=== PATIENT | male | born 1950 | race Caucasian/White ===

== ENCOUNTER 2025-06-12 14:24 | Emergency (ER) | payer OTHER ==
[~2025-06-12] VITALS: Ht 185.4 cm; Wt 87.1 kg
[2025-06-12] MEDS ORDERED: CARVEDILOL6.25 MG PO (14:49)
[2025-06-12] MEDS ORDERED: ELIQUIS5 M1 PO (14:49)
[2025-06-12] MEDS ORDERED: Acetaminophen/Oxycodone 5 MG/325 MG TABLET PO ONE (15:30)
[2025-06-12] MEDS ORDERED: PERCOCET 5-3251 EACH PO (15:39)
== END 2025-06-12 19:17 | disposition home or self-care (01) ==
LOC: ED 14:24
DX: S42.211A Unspecified displaced fracture of surgical neck of right humerus, initial encounter for closed fracture (principal); S42.291A Other displaced fracture of upper end of right humerus, initial encounter for closed fracture; W18.39XA Other fall on same level, initial encounter; Y93.89 Activity, other specified; Y92.096 Garden or yard of other non-institutional residence as the place of occurrence of the external cause; Y99.8 Other external cause status

== ENCOUNTER 2025-06-17 14:28 | Emergency (ER) | payer OTHER ==
[~2025-06-17] VITALS: Ht 185.4 cm; Wt 88.9 kg
[~2025-06-17 14:28] MED LIST: CARVEDILOL6.25 MG PO; ELIQUIS5 M1 PO; PERCOCET 5-3251 EACH PO
[2025-06-17] MEDS ORDERED: PERCOCET 5-3251 EACH PO (15:10)
== END 2025-06-17 15:09 | disposition home or self-care (01) ==
LOC: ED 14:28
DX: S42.91XA Fracture of right shoulder girdle, part unspecified, initial encounter for closed fracture (principal); I10 Essential (primary) hypertension; E78.5 Hyperlipidemia, unspecified; Z76.0 Encounter for issue of repeat prescription; Z79.899 Other long term (current) drug therapy; X58.XXXA Exposure to other specified factors, initial encounter; Y93.89 Activity, other specified; Y92.89 Other specified places as the place of occurrence of the external cause; Y99.8 Other external cause status

== ENCOUNTER 2025-07-15 09:40 | Emergency (ER) | payer OTHER ==
[~2025-07-15] VITALS: Ht 185.4 cm; Wt 89.4 kg
[2025-07-15 10:44] LABS: BASO # 0.1 10*3/uL (0.0-0.1); BASO % 0.7 % (0.0-1.0); EOS # 0.2 10*3/uL (0.0-0.4); EOS % 1.3 % (1.0-4.0); MEAN CELL VOLUME 97.2 fl (80.0-94.0); MEAN CORPUSCULAR HGB 31.8 pg (27.0-31.0); MEAN PLATELET VOLUME 11.5 fl (9.6-12.3); MONO # 0.7 10*3/uL (0.1-1.0); MONO % 4.8 % (3.0-9.0); NEUT # 11.1 10*3/uL (2.3-7.9); NEUT % 78.1 % (47.0-73.0); NUCLEATED RED BLOOD CELL 0.0 % (0.0-0.0); NUCLEATED RED BLOOD CELL 0.0 10*3/uL (0.0-0.0); PLATELET COUNT AUTOMATED 255 10*3/uL (130-400); RED CELL DISTRI WIDTH 13.2 % (0-14.5)
[2025-07-15 11:09] LABS: BUN 13 mg/dl (9-23); ETHYL ALCOHOL < 3.0 mg/dl (<3)
[2025-07-15 11:42] LABS: BILIRUBIN Negative (Negative); BLOOD Negative (Negative); CLARITY Clear (Clear); COLOR Yellow (Yellow); KETONE Negative (Negative); LEUKO ESTERASE Negative (Negative); NITRITE Negative (Negative); PH 6.5 (4.5-8.0); SPECIFIC GRAVITY 1.020 (1.001-1.030); UROBILINOGEN 1.0 E.U./dl (0.0-1.0)
[2025-07-15 11:48] LABS: URINE AMPHETAMINES Negative (1000ng/ml); URINE BARBITURATES Negative (200ng/ml); URINE BENZODIAZEPINES Negative (200ng/ml); URINE CANNABINOIDS (THC) Negative (50ng/ml); URINE COCAINE Negative (300ng/ml); URINE METHADONE Negative (300ng/ml); URINE OPIATES Negative (300ng/ml); URINE PHENCYCLIDINE Negative (25ng/ml)
[2025-07-15 11:53] LABS: BACTERIA 1+
[2025-07-15 11:54] LABS: MUCOUS 2+
== END 2025-07-15 18:05 | disposition short-term general hospital (02) ==
LOC: ED 09:40
PROVIDERS: Student in an Organized Health Care Education/Training Program
DX: S22.31XA Fracture of one rib, right side, initial encounter for closed fracture (principal); S27.0XXA Traumatic pneumothorax, initial encounter; R41.0 Disorientation, unspecified; I48.91 Unspecified atrial fibrillation; Z87.891 Personal history of nicotine dependence; Z79.899 Other long term (current) drug therapy; X58.XXXA Exposure to other specified factors, initial encounter; Y93.89 Activity, other specified; Y92.89 Other specified places as the place of occurrence of the external cause; Y99.8 Other external cause status